=== PATIENT | male | born 1995 | race Two or more races ===

== ENCOUNTER 2022-08-16 12:34 | Emergency (ER) | payer MEDICAID, OTHER ==
[~2022-08-16] VITALS: Ht 182.9 cm; Wt 108.8 kg
[2022-08-16] MEDS ORDERED: GABAPENTIN 300 MG CAP PO ONE (16:00)
[2022-08-16 16:20] VITALS: BP 113/65
[2022-08-16] MEDS ORDERED: IBUP-1455 PO (16:47)
[2022-08-16] MEDS ORDERED: HYDR-4798 PO (16:47)
== END 2022-08-16 17:06 | disposition home or self-care (01) ==
LOC: ER 12:34
DX: M54.12 Radiculopathy, cervical region (principal); M54.32 Sciatica, left side; F17.210 Nicotine dependence, cigarettes, uncomplicated; F12.90 Cannabis use, unspecified, uncomplicated
CPT/HCPCS: 72040; 72100

== ENCOUNTER 2023-01-14 20:18 | Emergency (ER) | payer MEDICAID ==
[~2023-01-14] VITALS: Ht 177.8 cm; Wt 90.0 kg
[~2023-01-14 20:18] MED LIST: HYDR-4798 PO; IBUP-1455 PO
[2023-01-14] MEDS ORDERED: HYDROmorphone HCL 2 MG/ML VL/or syr IV ONE ×2 (21:00→23:45)
[2023-01-14] MEDS ORDERED: ONDANSETRON HCL 4 MG/2 ML VIAL IV ONE (21:00)
[2023-01-14] MEDS ORDERED: IOHEXOL 300 MG/ML 100ML BOTTLE IJ ONE (21:15)
[2023-01-14 21:34] LABS: Basophils # (auto) 0.1 10 ^3/uL (0-0.2); Basophils % (auto) 0.3 % (0.0-2.0); Eosinophils # (auto) 0 10 ^3/uL (0-0.8); Eosinophils % (auto) 0.1 % (0.0-7.0); Hematocrit 44.3 % (41.0-53.0); Hemoglobin 14.6 g/dL (13.5-17.5); Lymphocytes # (auto) 1.2 10 ^3/uL (0.4-5.4); Lymphocytes % (auto) 5.2 % (10.0-50.0); Mean Corpuscular Hemoglobin 27.9 pg (28.0-32.0); Mean Corpuscular Volume 84.7 fL (80.0-100.0); Monocytes # (auto) 1.7 10 ^3/uL (0-1.3); Monocytes % (auto) 7.8 % (0.0-12.0); Neutrophils # (auto) 19.3 10 ^3/uL (1.6-8.6); Neutrophils % (auto) 86.6 % (37.0-80.0); Red Blood Cells 5.23 10^6/uL (4.5-5.90); Red Cell Distribution Width 13.4 % (11.8-14.3); White Blood Cell 22.3 10^3/uL (4.4-10.8)
[2023-01-14 21:54] LABS: Alanine Aminotransferase 26 U/L (7-40); Anion Gap 10 (5-15); Blood Urea Nitrogen 6 mg/dL (9-23); Calcium 9.4 mg/dL (8.7-10.4); Carbon Dioxide 23 mmol/L (20-30); Chloride 104 mmol/L (98-107); Glucose 105 mg/dL (74-106); Lipase 40 U/L (12-53); Potassium 3.5 mmol/L (3.5-5.1); Sodium 137 mmol/L (136-145)
[2023-01-14 21:55] LABS: Albumin 4.8 g/dL (3.2-4.8); Aspartate Aminotransferase 9 U/L (13-40)
[2023-01-14 21:56] LABS: Bilirubin, Total 0.6 mg/dL (0.2-1.0); Total Protein 7.3 g/dL (5.7-8.2)
[2023-01-14 22:05] LABS: Alkaline Phosphatase 56 U/L (46-116)
[2023-01-14 22:29] LABS: Urine Bacteria NONE SEEN /hpf (None Seen); Urine Blood Negative /uL (Negative); Urine Clarity Clear (Clear); Urine Color Yellow (Yellow); Urine Mucus FEW (None Seen); Urine Protein, UAD TRACE (Negative); Urine Specific Gravity 1.023 (1.001-1.035); Urine Urobilinogen Normal (Negative); Urine WBC 1 /hpf (0 - 3); Urine pH 7.5 (5.0-8.0)
[2023-01-14] MEDS ORDERED: PANTOPRAZOLE 40 MG/10 ML VIAL INJ IV ONE (23:45)
[2023-01-14] MEDS ORDERED: HYDROmorphone HCL 2 MG/ML VL/or syr IM ONE (23:45)
[2023-01-14] MEDS ORDERED: PIPERACILLIN-TAZOB 3.375GM 100 ML IV ONE (23:45)
[2023-01-15] MEDS ORDERED: HYDROmorphone HCL 2 MG/ML VL/or syr IV ONE (04:30)
[2023-01-15] MEDS ORDERED: ONDANSETRON HCL 4 MG/2 ML VIAL IV ONE (04:30)
[2023-01-15 07:28] VITALS: BP 128/83; PULSE 92; RESP 19; TEMP 99
[2023-01-15 07:44] VITALS: O2SAT 95
== END 2023-01-15 08:05 | disposition short-term general hospital (02) ==
LOC: EDBD 20:18 → ER 20:18
DX: L02.211 Cutaneous abscess of abdominal wall (principal); K91.89 Other postprocedural complications and disorders of digestive system; K56.7 Ileus, unspecified; K59.00 Constipation, unspecified; D72.829 Elevated white blood cell count, unspecified; F17.210 Nicotine dependence, cigarettes, uncomplicated; Z79.1 Long term (current) use of non-steroidal anti-inflammatories (NSAID); Z79.899 Other long term (current) drug therapy
CPT/HCPCS: 36415; 71250; 74176; 80053; 81001; 83605; 83690; 85025; 86850; 86900; 86901; 87040; 96365; 96375; 96376; 99285; C9113; J1170; J2405; J2543; Q9967